=== PATIENT | female | born 1995 | race Caucasian/White ===

== ENCOUNTER → 2018-03-06 21:46 | Emergency (ER) | payer BC ==
[2018-03-06 23:51] LABS: HIV (1/2) Antibody/Antigen Non-Reactive (NonReactive); Hep C IgG Ab Non-Reactive (NonReactive); Hep C Index 0.19 S/CO (0-0.79)
[2018-03-07 00:42] LABS: Hep B Surf AB Reactive (NonReactive)
== END | disposition home or self-care (01) ==
LOC: ERS 21:46
DX: Z77.21 Contact with and (suspected) exposure to potentially hazardous body fluids (principal); Z79.899 Other long term (current) drug therapy
CPT/HCPCS: 36415; 86706; 86803; 87389; 99283

== ENCOUNTER 2018-03-08 15:59 | Emergency (ER) | payer BC | END 2018-03-08 17:58 | disposition home or self-care (01) | LOC: ERS 15:59 | DX: Z20.5 Contact with and (suspected) exposure to viral hepatitis (principal); D35.2 Benign neoplasm of pituitary gland | CPT/HCPCS: 90371; 96372 ==